=== PATIENT | female | born 1965 | race Hispanic/Latino ===

== ENCOUNTER 2016-12-02 21:57 | Emergency (ER) | payer MEDICAID, OTHER ==
[2016-12-02 23:43] LABS: Urine Drugs of Abuse Note Disclamer
[2016-12-03 00:09] LABS: Bilirubin,Urine NEG (Negative); Blood,Urine NEG (Negative); Ketones,Urine NEG (Negative); Leukocyte Esterase,Urine NEG (Negative); Nitrite,Urine NEG (Negative); Protein,Urine <15 mg/dL mg/dL (Negative); Urobilinogen,Urine < 2.0 mg/dL (<2.0)
[2016-12-03 00:11] LABS: Basophils % (Auto) 0.3 % (0.0-1.8); Eosinophils % (Auto) 0.1 % (0.0-4.3); Hematocrit 38.8 % (30.3-42.9); Hemoglobin 12.9 gm/dl (10.1-14.3); Mean Corpuscular HGB Conc 33 % (30-34); Mean Corpuscular Hemoglobin 31 pg (28-32); Mean Corpuscular Volume 92 fl (79-97); Red Blood Count 4.22 M/mm3 (3.65-5.03); Red Cell Distribution Width 13.9 % (13.2-15.2); White Blood Count 8.3 K/mm3 (4.5-11.0)
[2016-12-03 00:17] LABS: WBC,Urine < 1.0 /HPF (0.0-6.0)
[2016-12-03 00:20] LABS: Platelet Count 236 K/mm3 (140-440)
[2016-12-03 00:44] LABS: Anion Gap 17 mmol/L; BUN/Creatinine Ratio 43; Blood Urea Nitrogen 17 mg/dL (7-17); Calcium 8.5 mg/dL (8.4-10.2); Carbon Dioxide 28 mmol/L (22-30); Chloride 95.3 mmol/L (98-107); Glucose 102 mg/dL (65-100); Potassium 3.7 mmol/L (3.6-5.0); Sodium 137 mmol/L (137-145)
--- NOTE | 2016-12-03 03:38 | Emergency Department Report ---
HPI - General Chief Complaint: Nausea/Vomiting/Diarrhea Time Seen by Provider: 12/03/16 02:42 - HPI HPI: Room 14 Patient is a 51-year-old female presented with a chief complaint of suicidal ideation. States she took a handful of pills this past afternoon in an attempt to kill her so. Patient stated, "I'm a druggie and an alcoholic." The patient states she took a handful of pills which include Tegretol, Klonopin, Antabuse and one other medication that she cannot recall. The patient states she took them just before sunset Location: Mental state Duration: [See above] Quality: Suicidal Severity: Severe Modifying factors: [see above] Context: [see above] Mode of transportation: [not driving] ED Past Medical Hx - Past Medical History Previous Medical History?: Yes Hx Psychiatric Treatment: Yes (bipolar, schizoaffective) Additional medical history: denies history of chronic liver disease. States that she's had a seizure in the past when she withdrew from alcohol. Denies history of GI bleeding. - Surgical History Past Surgical History?: No - Family History Family history: no significant - Social History Smoking Status: Current Every Day Smoker (2 packs per day) Substance Use Type: Alcohol (daily), Cocaine, Methamphetamines, Other (ecstasy) - Medications Home Medications: Home Medications Medication Instructions Recorded Confirmed Last Taken Type No Known Home Medications [No 05/25/15 11/17/15 Unknown History Reported Home Medications] ED Review of Systems ROS: Stated complaint: MH Other details as noted in HPI Comment: All other systems reviewed and negative Constitutional: denies: chills, fever Eyes: denies: eye pain, eye discharge, vision change ENT: denies: ear pain, throat pain Respiratory: denies: cough, shortness of breath, wheezing Cardiovascular: denies: chest pain, palpitations Endocrine: no symptoms reported Gastrointestinal: denies: abdominal pain, nausea, diarrhea Genitourinary: denies: urgency, dysuria, discharge Musculoskeletal: denies: back pain, joint swelling, arthralgia Skin: denies: rash, lesions Psychiatric: suicidal thoughts Hematological/Lymphatic: denies: easy bleeding, easy bruising Physical Exam - Physical Exam Vital Signs: Vital Signs 12/02/16 12/03/16 12/03/16 22:56 00:58 01:54 Temperature 97 F L 97.7 F Pulse Rate 78 81 88 Respiratory 18 16 17 Rate Blood Pressure 123/78 Blood Pressure 110/71 119/79 [Left] O2 Sat by Pulse 99 0 L 99 Oximetry Physical Exam: GENERAL: The patient is well-developed well-nourished female lying on stretcher not appearing to be in acute distress. [] HEENT: Normocephalic. Atraumatic. Extraocular motions are intact. Patient has moist mucous membranes. NECK: Supple. Trachea midline CHEST/LUNGS: Clear to auscultation. There is no respiratory distress noted. HEART/CARDIOVASCULAR: Regular. There is no tachycardia. There is no gallop rub or murmur. ABDOMEN: Abdomen is soft, nontender. Patient has normal bowel sounds. There is no abdominal distention. SKIN: There is no rash. There is no edema. There is no diaphoresis. NEURO: The patient is awake, alert, and oriented. The patient is cooperative. The patient has normal speech MUSCULOSKELETAL: There is no evidence of acute injury. ED Course Vital Signs 12/02/16 12/03/16 12/03/16 22:56 00:58 01:54 Temperature 97 F L 97.7 F Pulse Rate 78 81 88 Respiratory 18 16 17 Rate Blood Pressure 123/78 Blood Pressure 110/71 119/79 [Left] O2 Sat by Pulse 99 0 L 99 Oximetry ED Medical Decision Making - Lab Data Result diagrams: 12/02/16 23:08 12/02/16 23:08 Laboratory Tests 12/02/16 12/02/16 12/02/16 23:04 23:08 23:08 WBC RBC Hgb Hct MCV MCH MCHC RDW Plt Count Lymph % (Auto) Titus % (Auto) Eos % (Auto) Baso % (Auto) Lymph # Titus # Eos # Baso # Seg Neutrophils % Seg Neutrophils # Sodium 137 Potassium 3.7 Chloride 95.3 L Carbon Dioxide 28 Anion Gap 17 BUN 17 Creatinine 0.4 L Estimated GFR > 60 BUN/Creatinine Ratio 43 Glucose 102 H Calcium 8.5 Urine Color Yellow Urine Turbidity Cloudy Urine pH 8.0 H Ur Specific Mobile 1.014 Urine Protein <15 mg/dl Urine Glucose (UA) Neg Urine Ketones Neg Urine Blood Neg Urine Nitrite Neg Urine Bilirubin Neg Urine Urobilinogen < 2.0 Ur Leukocyte Esterase Neg Urine WBC (Auto) < 1.0 Urine RBC (Auto) 2.0 U Epithel Cells (Auto) 1.0 Amorphous Crystals 1+ Salicylates Urine Opiates Screen Urine Methadone Screen Acetaminophen Ur Barbiturates Screen Carbamazepine Ur Phencyclidine Scrn Ur Amphetamines Screen U Benzodiazepines Scrn Urine Cocaine Screen U Marijuana (THC) Screen Drugs of Abuse Note Plasma/Serum Alcohol < 0.01 12/02/16 12/02/16 12/03/16 23:08 Unknown 03:21 WBC 8.3 RBC 4.22 Hgb 12.9 Hct 38.8 MCV 92 MCH 31 MCHC 33 RDW 13.9 Plt Count 236 Lymph % (Auto) 13.1 L Titus % (Auto) 6.8 Eos % (Auto) 0.1 Baso % (Auto) 0.3 Lymph # 1.1 L Titus # 0.6 Eos # 0.0 Baso # 0.0 Seg Neutrophils % 79.7 H Seg Neutrophils # 6.6 Sodium Potassium Chloride Carbon Dioxide Anion Gap BUN Creatinine Estimated GFR BUN/Creatinine Ratio Glucose Calcium Urine Color Urine Turbidity Urine pH Ur Specific Mobile Urine Protein Urine Glucose (UA) Urine Ketones Urine Blood Urine Nitrite Urine Bilirubin Urine Urobilinogen Ur Leukocyte Esterase Urine WBC (Auto) Urine RBC (Auto) U Epithel Cells (Auto) Amorphous Crystals Salicylates < 0.3 L Urine Opiates Screen -679 Urine Methadone Screen -382 Acetaminophen Ur Barbiturates Screen -496 Carbamazepine 7.6 Ur Phencyclidine Scrn -447 Ur Amphetamines Screen -251 U Benzodiazepines Scrn -205 Urine Cocaine Screen -487 U Marijuana (THC) Screen -203 Drugs of Abuse Note Disclamer Plasma/Serum Alcohol 12/03/16 03:21 WBC RBC Hgb Hct MCV MCH MCHC RDW Plt Count Lymph % (Auto) Titus % (Auto) Eos % (Auto) Baso % (Auto) Lymph # Titus # Eos # Baso # Seg Neutrophils % Seg Neutrophils # Sodium Potassium Chloride Carbon Dioxide Anion Gap BUN Creatinine Estimated GFR BUN/Creatinine Ratio Glucose Calcium Urine Color Urine Turbidity Urine pH Ur Specific Mobile Urine Protein Urine Glucose (UA) Urine Ketones Urine Blood Urine Nitrite Urine Bilirubin Urine Urobilinogen Ur Leukocyte Esterase Urine WBC (Auto) Urine RBC (Auto) U Epithel Cells (Auto) Amorphous Crystals Salicylates Urine Opiates Screen Urine Methadone Screen Acetaminophen < 15.0 Ur Barbiturates Screen Carbamazepine Ur Phencyclidine Scrn Ur Amphetamines Screen U Benzodiazepines Scrn Urine Cocaine Screen U Marijuana (THC) Screen Drugs of Abuse Note Plasma/Serum Alcohol - Differential Diagnosis suicidal ideation Critical care attestation.: If time is entered above; I have spent that time in minutes in the direct care of this critically ill patient, excluding procedure time. ED Disposition Clinical Impression: Suicidal ideations Disposition: DC/TX-65 PSY HOSP/PSY UNIT Is pt being admited?: No Does the pt Need Aspirin: No Condition: Serious Referrals: PRIMARY CARE, [Primary Care Provider] - 3-5 Days Time of Disposition: 03:59 (awaiting acceptance)
[2016-12-03 03:56] LABS: Carbamazepine (Tegretol) 7.6 ug/mL (4-12); Salicylate < 0.3 mg/dL (2.8-20.0)
[2016-12-03] MEDS ORDERED: ATIVAN PO PRN (09:53)
[2016-12-03] MEDS ORDERED: ATIVAN IV PRN (09:53)
[2016-12-03] MEDS: ASPIRIN PO ONE (10:41)
[2016-12-03] MEDS: ATIVAN PO PRN (11:15)
--- NOTE | 2016-12-03 13:06 | Consultation ---
History of Present Illness - Reason for Consult Reason for consult: substance abuse Medications and Allergies Allergies Allergy/AdvReac Type Severity Reaction Status Date / Time acetaminophen [From Tylenol] Allergy Swelling Verified 12/03/16 08:46 ibuprofen [From Motrin] Allergy Swelling Verified 12/03/16 08:46 naproxen [From Aleve] Allergy Swelling Verified 12/03/16 08:46 Home Medications Medication Instructions Recorded Confirmed Last Taken Type No Known Home Medications [No 05/25/15 11/17/15 Unknown History Reported Home Medications] Active Meds: Active Medications Lorazepam (Ativan) 4 mg IV Q15MIN PRN PRN Reason: CIWA-Ar >25 Lorazepam (Ativan) 4 mg PO Q1HR PRN PRN Reason: CIWA-Ar 16-25 Lorazepam (Ativan) 2 mg PO Q1HR PRN PRN Reason: CIWA-Ar 8-15 Last Admin: 12/03/16 11:15 Dose: 2 mg Mental Status Exam - Vital signs Last Vital Signs Temp 98.8 F 12/03/16 09:30 Pulse 85 12/03/16 09:30 Resp 14 12/03/16 09:30 BP 122/74 12/03/16 09:30 Pulse Ox 100 12/03/16 09:30 Results Result Diagrams: 12/02/16 23:08 12/02/16 23:08 Abnormal lab results 12/02/16 12/02/16 12/02/16 Range/Units 23:04 23:08 23:08 Lymph % (Auto) 13.1 L (13.4-35.0) % Lymph # 1.1 L (1.2-5.4) K/mm3 Seg Neutrophils % 79.7 H (40.0-70.0) % Chloride 95.3 L (98-107) mmol/L Creatinine 0.4 L (0.7-1.2) mg/dL Glucose 102 H (65-100) mg/dL Urine pH 8.0 H (5.0-7.0) Salicylates (2.8-20.0) mg/dL 12/03/16 Range/Units 03:21 Lymph % (Auto) (13.4-35.0) % Lymph # (1.2-5.4) K/mm3 Seg Neutrophils % (40.0-70.0) % Chloride (98-107) mmol/L Creatinine (0.7-1.2) mg/dL Glucose (65-100) mg/dL Urine pH (5.0-7.0) Salicylates < 0.3 L (2.8-20.0) mg/dL All other labs normal. Assessment and Plan Assessment and plan: CHIEF COMPLAINT IN PATIENTS WORDS: HISTORY OF PRESENT ILLNESS: This is a 51-year-old female with a past psychiatric history of polysubstance abuse and mood disorder who now presents secondary to worsening symptoms of depression in the context of ongoing abuse of various illicit substances as well as alcohol. At the current moment patient continues to report that she is struggling with severe symptoms of a mood disorder. Symptoms include persistent thoughts of suicide. PSYCHIATRIC REVIEW OF SYSTEMS: Substance: UDS Detoxification/Withdrawal: none noted Depression: Withdrawn, irritable, passive SI Suri: labile moods, not hyperverbal, no flight of ideas Psychosis: no AVH, no thought disorder noted, no paranoia/grandiosity/erotomania Anxiety/ OCD/ PTSD: Endorses somatic symptoms, flashbacks, nightmares, avoidance , panic attacks Suicidality: Passive SI Other Self-Injurious Behavior: none currently, no SIB noted recently Violent/ Aggressive Behavior: none noted CURRENT MEDICATIONS: per medication reconciliation ALLERGIES: Acetaminophen, Protonix, naproxen PAST PSYCHIATRIC HISTORY: Inpatient: Multiple Outpatient: Has outpatient providers Prior Suicide Attempts: Previous suicide attempts noted Prior Self-Injurious Behaviors: No self injury noted in the past PAST PSYCHIATRIC MEDICATION TRIALS: Unknown MEDICAL HISTORY: Per ER doc note MENTAL STATUS EXAM: General Appearance: Dressed in hospital gown, no acute distress Sensorium/Consciousness: alert and responding to external stimuli Eye Contact: limited Attitude / Behavior: cooperative, but guarded Psychomotor & Musculoskeletal Activity: WNL Mood: fine Affect: constricted Speech / Language: normal Thought Processes: organized, logical, linear, goal directed Thought Content: passive SI, no HI Perception: no AVH Orientation: person, place, time, situation Judgment What would you do if you smelled smoke in a crowded movie theater?: poor/impulsive Insight: poor Intelligence Vocabulary, general fund of knowledge, educational level: Average Capacity of ADLs: Independent STRENGTHS: PSYCHOSOCIAL AND ENVIRONMENTAL STRESSORS: ASSESSMENT: Substance-induced mood disorder Polysubstance abuse PLAN OF CARE: Refer patient for inpatient hospitalization at [facility]
[2016-12-03 16:30] VITALS: BP 120/72
== END 2016-12-03 16:07 ==
LOC: EEVIPCON 21:57 → ED 21:57
DX: R45.851 Suicidal ideations (principal); F14.10 Cocaine abuse, uncomplicated; F15.10 Other stimulant abuse, uncomplicated; F17.200 Nicotine dependence, unspecified, uncomplicated
CPT/HCPCS: 36415; 80048; 80156; 80307; 81001; 85025; 99285; G0480; 80320